=== PATIENT | female | born 2000 | race African-American/Black ===

== ENCOUNTER 2019-01-05 01:10 | Emergency (ER) | payer MEDICAID, OTHER ==
[~2019-01-05] VITALS: Ht 157.5 cm; Wt 84.1 kg
[~2019-01-05 01:10] MED LIST: VALA500T PO
[2019-01-05 01:21] VITALS: BP 125/67; PULSE 100; RESP 18; Ht 157.5 cm; Wt 84.1 kg
== END 2019-01-05 02:41 | disposition home or self-care (01) ==
LOC: FTE 01:10
DX: K13.70 Unspecified lesions of oral mucosa (principal)
CPT/HCPCS: 99283